=== PATIENT | female | born 1940 | race African-American/Black ===

== ENCOUNTER 2018-12-01 12:40 | Inpatient (IN) | payer OTHER, BC ==
--- NOTE | 2018-12-01 13:38 | RAD REPORT ---
EXAM DESCRIPTION: CT - Head C Spine Mpr Wo Con - 12/01/2018 1:15 pm CLINICAL HISTORY: Head and neck injury status post fall. Head and neck pain COMPARISON: None. TECHNIQUE: Computed axial tomography of the head and cervical spine was obtained. Sagittal and coronal reconstruction was performed. All CT scans are performed using dose optimization technique as appropriate and may include automated exposure control or mA/KV adjustment according to patient size. FINDINGS: Mild to moderate low-density areas within periventricular, deep and subcortical white michael er probably ischemic changes secondary to small vessel disease An intracranial bleed is not seen. The ventricles are normal in caliber. An extra-axial fluid collect ion is not noted.Fluid within the visualized sinuses and mastoids is not seen. Coarse vascular calcif ications are present A cervical fracture is not visualized. No dislocation is noted. 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 A cervical fracture is not visualized. If the patient continues to have symptoms to suggest intracra nial /spinal cord pathology then MRI would be recommended 7 centimeter left thyroid mass extending substernally shifting the trachea towards the right. Further evaluation with nonemergent ultrasound recommended
[2018-12-01 13:57] LABS: Absolute Lymphocytes (CBC) 0.8 K/uL (0.7-4.9); Basophils % 0.6 % (0-1.3); Hematocrit 36.3 % (36.0-45.0); MPV 8.4 fL (7.6-11.3); RBC Red Blood Cell Count 3.98 M/uL (3.86-4.86)
[2018-12-01 14:00] LABS: Protime INR 1.16
--- NOTE | 2018-12-01 14:08 | RAD REPORT ---
EXAM DESCRIPTION: RAD - Pelvis - 12/01/2018 1:15 pm CLINICAL HISTORY: Pelvic pain status post injury FINDINGS: Comminuted intertrochanteric fracture involves the proximal right femur extending to the l janine and greater trochanters. Extreme varus angulation present at the fracture site No dislocation Osteoporosis
--- NOTE | 2018-12-01 14:08 | RAD REPORT ---
EXAM DESCRIPTION: RAD - Hip Right 2 View - 12/01/2018 1:14 pm CLINICAL HISTORY: Right hip pain FINDINGS: Comminuted intertrochanteric fracture involves the proximal right femur extending to the l janine and greater trochanters. Extreme varus angulation present at the fracture site No dislocation Osteoporosis
--- NOTE | 2018-12-01 14:09 | RAD REPORT ---
EXAM DESCRIPTION: Audi Single View12/01/2018 1:15 pm CLINICAL HISTORY: Chest pain COMPARISON: none FINDINGS: The lungs appear clear of acute infiltrate. The heart is mildly enlarged IMPRESSION: No acute abnormalities displayed
--- NOTE | 2018-12-01 14:25 | ER ---
Nurse's Notes [facility] Name: Deborah Brooks Age: 78 yrs Sex: Female : 1940 Arrival Date: 12/01/2018 Time: 12:41 Bed 25 Private MD: Diagnosis: Displaced intertrochanteric fracture of right femur Presentation: 12/01 12:35 Trauma event details: Injury occurred in the [facility], Injury occurred: [facility] alf Injury occurred: December 01, 2018. 12:49 Presenting complaint: EMS states: patient had an unwitnessed fall this morning. she was mg2 found on the floor, sustained injury to her right hip, shortening of the right leg, pain in the right shoulder, xray was done in [facility] and she has fracture in the right hip. BGL 162 mg/dl. AO x1. Transition of care: patient was received from another setting of care (long-term care facility), [facility]. Onset of symptoms was December 01, 2018. Risk Assessment: Do you want to hurt yourself or someone else? Patient reports no desire to harm self or others. Initial Sepsis Screen: Does the patient meet any 2 criteria? No. Patient's initial sepsis screen is negative. Does the patient have a suspected source of infection? No. Patient's initial sepsis screen is negative. Care prior to arrival: Medication(s) given: fentanyl 50 mcg IV IV initiated. 20 GA, in the left antecubital area, Glucose check: 162 hip brace. 12:49 Method Of Arrival: EMS: [place] [id number] 12:49 Acuity: [place] 3 [facility] 14:21 Mechanism of Injury: Fall from standing position. [facility] Trauma Activation: Alert Physician: ED Physician; Name: dr collier; Notified At: ; Arrived At: Physician: General Surgeon; Name: ; Notified At: ; Arrived At: Physician: Radiology; Name: randal; Notified At: ; Arrived At: Physician: Respiratory; Name: ; Notified At: ; Arrived At: Physician: Lab; Name: ; Notified At: ; Arrived At: Historical: - Allergies: 14:29 No Known Allergies; mg2 - Home Meds: 14:29 citalopram 10 mg tab once daily [Active]; labetolol [Active]; losartan 50 mg oral tab 1 mg2 tab once daily [Active]; Melatonin Oral [Active]; namenda [Active]; Norvasc 2.5 mg Oral tab [Active]; - PMHx: 14:29 left breast neoplasm; DM 2; Hypertension; insomnia; dysphagia; communication deficit; mg2 Dementia; - PSHx: 14:29 left breast mastectomy; mg2 - Immunization history:: Flu vaccine status is unknown. - Immunization history: Last tetanus immunization: unknown. - Family history:: not pertinent. - Social history:: Smoking status: unknown. - Ebola Screening: : No symptoms or risks identified at this time. - Hospitalizations: : No recent hospitalization is reported. Screenin:15 Abuse screen: Denies threats or abuse. Denies injuries from another. Nutritional mg2 screening: No deficits noted. Tuberculosis screening: No symptoms or risk factors identified. 14:30 Fall Risk Fall in past 12 months (25 points). Mental Status- Overestimates/Forgets mg2 Limitations (15 pts.). Primary Survey: 14:14 NO uncontrolled hemorrhage observed. A: The patient is alert. Breathing/Chest: mg2 Respiratory pattern: regular, Respiratory effort: spontaneous, unlabored. Circulation: Skin color: pink. Disability Alert. Exposure/Environment: All clothing and personal items were removed. Forensic evidence collection is not deemed to be indicated at this time. Items placed in patient belonging bag. There is no evidence of uncontrolled external bleeding. A warming method has been applied: A warm blanket has been provided to the patient. 15:30 Reassessment Airway Airway Patent Breathing/Chest Respiratory pattern Regular mg2 Respiratory effort Spontaneous Unlabored Breath sounds Clear Chest inspection Symmetrical Circulation Color Vesper Disability Alert. Secondary Survey: 14:15 HEENT: No deficits noted. Gastrointestinal: No deficits noted. : No deficits noted. mg2 Musculoskeletal: shortening of right leg. Assessment: 14:10 General: Appears in no apparent distress. comfortable, Behavior is calm, cooperative. mg2 Pain: Unable to use pain scale. Patient appears quiet. Neuro: Level of Consciousness is awake, alert, obeys commands, Oriented to person, place, time, situation. EENT: No signs and/or symptoms were reported regarding the EENT system. Cardiovascular: Capillary refill < 3 seconds Patient's skin is warm and dry. Respiratory: Airway is patent Respiratory effort is even, unlabored, Respiratory pattern is regular, symmetrical. GI: No signs and/or symptoms were reported involving the gastrointestinal system. : No signs and/or symptoms were reported regarding the genitourinary system. Derm: Skin is intact, is healthy with good turgor, Skin is pink, warm \T\ dry. normal. Musculoskeletal: Capillary refill < 3 seconds, Swelling present in right hip. 14:52 Reassessment: patient informed about the plan for admission. she said ok. mg2 15:04 Injury Description: fracture in the right femur extending to the trochanter area. mg2 16:21 Reassessment: Patient appears in no apparent distress at this time. mg2 17:54 Reassessment: Reassessment: Patient appears in no apparent distress at this time. mg2 Vital Signs: 12:53 BP 159 / 90; Pulse 77; Resp 18; Temp 98.5; Pulse Ox 100% on R/A; mg2 14:35 BP 161 / 78; Pulse 70; Resp 18; Pulse Ox 97% on R/A; mg2 15:21 BP 133 / 67; Pulse 71; Resp 18; Pulse Ox 100% on R/A; mg2 [place] Coma Score: 14:19 Eye Response: spontaneous(4). Verbal Response: confused(4). Motor Response: localizes mg2 pain(5). Total: 13. Trauma Score (Adult): 14:19 Eye Response: spontaneous(1); Verbal Response: confused(1); Motor Response: localizes mg2 pain(1); Systolic BP: > 89 mm Hg(4); Respiratory Rate: 10 to 29 per min(4); [place] Score: 13; Trauma Score: 11 14:35 Eye Response: spontaneous(1); Verbal Response: confused(1); Motor Response: localizes mg2 pain(1); Systolic BP: > 89 mm Hg(4); Respiratory Rate: 10 to 29 per min(4); [place] Score: 13; Trauma Score: 11 ED Course: 12:41 Patient arrived in ED. rn 12:41 Manav Collier MD is Attending Physician. rn 12:42 Randal Delaney RN is Primary Nurse. mg2 12:53 Triage completed. mg2 12:54 Arm band placed on. mg2 13:15 CT Head C Spine In Process Unspecified. EDMS 13:15 XRAY Hip RIGHT 2 view In Process Unspecified. EDMS 13:15 XRAY Chest (1 view) In Process Unspecified. EDMS 13:15 XRAY Pelvis In Process Unspecified. EDMS 13:15 CT completed. Patient tolerated procedure well. Patient moved back from CT. mw3 13:16 X-ray completed. Portable x-ray completed in exam room. Patient tolerated procedure mh1 well. 14:[address] Massey and connected with Dr Collier. gm 14:16 Patient has correct armband on for positive identification. mg2 14:16 Inserted saline lock: 20 gauge in right. Patient maintains SpO2 saturation greater than mg2 95% on room air. 14:23 Gavin Foster MD is Hospitalizing Provider. rn 14:30 Thermoregulation: warm blanket given to patient. mg2 14:30 No provider procedures requiring assistance completed. mg2 17:55 Patient admitted, IV remains in place. mg2 Administered Medications: 14:40 Drug: Demerol 25 mg Route: IVP; Site: right forearm; mg2 17:04 Follow up: Response: No adverse reaction; Marked relief of symptoms mg2 14:40 Drug: NS 0.9% 1000 ml Route: IV; Rate: 100 ml/hr; Site: right forearm; mg2 17:04 Follow up: Response: No adverse reaction; IV Status: Infusion continued upon admission; mg2 IV Intake: 300ml Intake: 14:19 PO: 0ml; Total: 0ml. mg2 17:04 IV: 300ml; Total: 300ml. mg2 Outcome: 14:24 Decision to Hospitalize by Provider. rn 17:54 Admitted to Tele accompanied by corazon, via stretcher, room 412, with chart, Report mg2 called to CECILIA Hicks 17:54 Condition: stable 17:54 Instructed on the need for admit, Demonstrated understanding of instructions. 17:55 Patient's length of stay in the Emergency Department was greater than 2 hours. mg2 18:13 Patient left the ED. mg2 Signatures: Dispatcher [employer] EDMS Franci Ramirez mh1 Manav Collier MD MD rn Gardose, Michele, RN RN mg2 Willis, Michelle mw3 Amy Ruiz Corrections: (The following items were deleted from the chart) 18:13 17:54 Reassessment: mg2 mg2 18:13 17:54 Reassessment: Patient appears in no apparent distress at this time. Patient is mg2 alert, oriented x 3, equal unlabored respirations, skin warm/dry/pink. Reassessment: Patient appears in no apparent distress at this time. Patient is alert, oriented x 3, equal unlabored respirations, skin warm/dry/pink. mg2
--- NOTE | 2018-12-01 14:25 | EDPHYS ---
Physician Documentation [facility] Name: Deborah Brooks Age: 78 yrs Sex: Female : 1940 Arrival Date: 12/01/2018 Time: 12:41 Bed 25 Private MD: ED Physician Manav Collier HPI: 12/01 12:52 This 78 yrs old Black Female presents to ER via Unassigned with complaints of fall, hip rn injury. 12:52 The patient or guardian reports decreased range of motion, deformity, an injury, pain. rn The complaints affect the right hip. Onset: The symptoms/episode began/occurred this morning. Modifying factors: The symptoms are alleviated by remaining still, the symptoms are aggravated by any movement. Severity of symptoms: At their worst the symptoms were moderate, in the emergency department the symptoms are unchanged. It is unknown whether or not the patient has had similar symptoms in the past. Per EMS, fall this AM, unwitnessed, xrays obtained at retirement, shows right hip fracture, and neg shoulder xray. Per report, at baseline mentally, no other gross signs of trauma. + dementia. No blood thinners. . Historical: - Allergies: 14:29 No Known Allergies; mg2 - Home Meds: 14:29 citalopram 10 mg tab once daily [Active]; labetolol [Active]; losartan 50 mg oral tab 1 mg2 tab once daily [Active]; Melatonin Oral [Active]; namenda [Active]; Norvasc 2.5 mg Oral tab [Active]; - PMHx: 14:29 left breast neoplasm; DM 2; Hypertension; insomnia; dysphagia; communication deficit; mg2 Dementia; - PSHx: 14:29 left breast mastectomy; mg2 - Immunization history:: Flu vaccine status is unknown. - Immunization history: Last tetanus immunization: unknown. - Family history:: not pertinent. - Social history:: Smoking status: unknown. - Ebola Screening: : No symptoms or risks identified at this time. - Hospitalizations: : No recent hospitalization is reported. ROS: 12:52 Unable to obtain ROS due to baseline dementia. rn Exam: 12:52 Constitutional: This is a well developed, well nourished patient who is awake, doesn't rn follow commands Head/Face: Normocephalic, atraumatic. ENT: No oral trauma Neck: No midline tenderness or swelling Chest/axilla: Normal chest wall appearance and motion. Nontender with no deformity. No lesions are appreciated. Cardiovascular: Regular rate and rhythm. No pulse deficits. Respiratory: No increased work of breathing, no retractions or nasal flaring. Abdomen/GI: soft, non-tender Back: No spinal tenderness MS/ Extremity: Pulses equal, no cyanosis. + RLE shortened and internally rotated, distal pulses intact and equal. grimaces in pain with ROM right shoulder. Neuro: Awake, doesn't follow commands. Vital Signs: 12:53 BP 159 / 90; Pulse 77; Resp 18; Temp 98.5; Pulse Ox 100% on R/A; mg2 14:35 BP 161 / 78; Pulse 70; Resp 18; Pulse Ox 97% on R/A; mg2 15:21 BP 133 / 67; Pulse 71; Resp 18; Pulse Ox 100% on R/A; mg2 [place] Coma Score: 14:19 Eye Response: spontaneous(4). Verbal Response: confused(4). Motor Response: localizes mg2 pain(5). Total: 13. Trauma Score (Adult): 14:19 Eye Response: spontaneous(1); Verbal Response: confused(1); Motor Response: localizes mg2 pain(1); Systolic BP: > 89 mm Hg(4); Respiratory Rate: 10 to 29 per min(4); [place] Score: 13; Trauma Score: 11 14:35 Eye Response: spontaneous(1); Verbal Response: confused(1); Motor Response: localizes mg2 pain(1); Systolic BP: > 89 mm Hg(4); Respiratory Rate: 10 to 29 per min(4); [place] Score: 13; Trauma Score: 11 MDM: 12:41 Patient medically screened. rn 14:22 Differential diagnosis: hip fracture, intertrochanteric fracture, femoral neck rn fracture, femoral shaft fracture, strain. Data reviewed: vital signs, nurses notes, lab test result(s), EKG, radiologic studies, CT scan, plain films, and as a result, I will admit patient. Counseling: I had a detailed discussion with the patient and/or guardian regarding: the historical points, exam findings, and any diagnostic results supporting the discharge/admit diagnosis, lab results, radiology results, the need for further work-up and treatment in the hospital. Admission orders: after a detailed discussion of the patient's condition and case, the admit orders are written by me. ED course: Consulted with Dr. Massey, will admit to hospitalist for right intertrochanteric femur fracture. . 14:24 ED course: Pt received fentanyl by EMS. rn 12/01 12:42 Order name: CBC with Diff; Complete Time: 14:27 rn 12/01 12:42 Order name: Basic Metabolic Panel rn 12/01 12:42 Order name: Protime (+inr); Complete Time: 14:11 rn 12/01 12:42 Order name: Ptt, Activated; Complete Time: 14:11 rn 12/01 12:42 Order name: CT Head C Spine; Complete Time: 13:48 rn 12/01 14:01 Order name: Manual Differential; Complete Time: 14:27 EDMS 12/01 12:42 Order name: IV Start; Complete Time: 14:34 rn 12/01 12:42 Order name: XRAY Hip RIGHT 2 view; Complete Time: 14:11 rn 12/01 12:42 Order name: EKG; Complete Time: 12:44 rn 12/01 12:42 Order name: EKG - Nurse/Tech; Complete Time: 14:33 rn 12/01 12:56 Order name: XRAY Chest (1 view); Complete Time: 14:11 rn 12/01 12:56 Order name: XRAY Pelvis; Complete Time: 14:11 rn Administered Medications: 14:40 Drug: Demerol 25 mg Route: IVP; Site: right forearm; mg2 17:04 Follow up: Response: No adverse reaction; Marked relief of symptoms mg2 14:40 Drug: NS 0.9% 1000 ml Route: IV; Rate: 100 ml/hr; Site: right forearm; mg2 17:04 Follow up: Response: No adverse reaction; IV Status: Infusion continued upon admission; mg2 IV Intake: 300ml Disposition: 12/01/18 14:24 Hospitalization ordered by Gavin Foster for Inpatient Admission. Preliminary diagnosis is Displaced intertrochanteric fracture of right femur. - Bed requested for Telemetry/MedSurg (Inpatient). - Status is Inpatient Admission. mg2 - Condition is Stable. - Problem is new. - Symptoms have improved. UTI on Admission? No Signatures: Dispatcher [employer] EDMS Manav Collier MD MD rn Gardose, Michele, RN RN mg2 Moya, Gabriella Corrections: (The following items were deleted from the chart) 12:57 12:52 Constitutional: This is a well developed, well nourished patient who is awake, rn doesn't follow commands Head/Face: Normocephalic, atraumatic. ENT: No oral trauma Neck: No midline tenderness or swelling Chest/axilla: Normal chest wall appearance and motion. Nontender with no deformity. No lesions are appreciated. rn 16:59 14:24 Hospitalization Ordered by Gavin Foster MD for Inpatient Admission. Preliminary gm diagnosis is Displaced intertrochanteric fracture of right femur. Bed requested for Telemetry/MedSurg (Inpatient). Status is Inpatient Admission. Condition is Stable. Problem is new. Symptoms have improved. UTI on Admission? No. rn 18:13 16:59 12/01/2018 14:24 Hospitalization Ordered by Gavin Foster MD for Inpatient mg2 Admission. Preliminary diagnosis is Displaced intertrochanteric fracture of right femur. Bed requested for Telemetry/MedSurg (Inpatient). Status is Inpatient Admission. Condition is Stable. Problem is new. Symptoms have improved. UTI on Admission? No. gm
[2018-12-01 14:26] LABS: Blood Morphology Comment NOTED (NOT SEEN); Burr Cells 2+; Ovalocytes 2+; Platelet Estimate ADEQ
[2018-12-01] MEDS ORDERED: MEPERIDINE HCL 25 MG/0.5 ML ONE (14:36)
[2018-12-01] MEDS ORDERED: NA CHLORIDE 0.9% 1,000 ML ONE (14:36)
[2018-12-01] MEDS ORDERED: GLUCAGON 1 MG/VIAL IM PRN (17:38)
[2018-12-01] MEDS ORDERED: ACETAMINOPHEN 500 MG TAB PO PRN (17:38)
[2018-12-01] MEDS ORDERED: ONDANSETRON 4 MG/2 ML VIAL IV PRN (17:38)
[2018-12-01] MEDS ORDERED: D50W 25 GM/50 ML SYRINGE IV PRN (17:38)
[2018-12-01 18:35] LABS: Thyroid Stimulating Hormone 0.028 uIU/mL (0.360-3.740)
--- NOTE | 2018-12-01 19:41 | P.CNS ---
Date of Consult: 12/01/18 Reason for Consult: FX RIGHT HIP Requesting Physician: Gavin Foster Chief Complaint: COMMUNICATION LIMITED BY DEMENTIA History of Present Illness: PATIENT FELL AT [facility] AND HAD SEVERE PAIN WITH MOVEMENT RIGHT HIP. BROUGHT TO ED VIA EMS X-RAYS SHOW A COMMINUTED RIGHT HIP FRACTURE. SHOULDER FILMS TAKEN AT [facility] WERE NEGATIVE. Allergies No Known Allergies Allergy (Unverified 12/01/18 17:37) Home medications list reviewed: Yes - Past Medical/Surgical History Diabetic: Yes -: LEFT BREAST NEOPLASM -: AODM2 -: HTN -: INSOMNIA -: DYSPHAGIA -: DEMENTIA -: LEFT BREAST SURGERY - Social History Smoking Status: Unknown if ever smoked Place of Residence: [place]-Term Review of Systems is unable to be obtained Physical Examination Temp Pulse Resp BP Pulse Ox 98.5 F 71 18 133/67 12/01/18 12:53 12/01/18 15:21 12/01/18 15:21 12/01/18 15:21 General: Demented, Confused HEENT: Atraumatic, Normocephalic Neck: Supple Respiratory: Normal air movement Cardiovascular: Normal pulses Capillary refill: <2 Seconds Gastrointestinal: Soft and benign, Non-distended Musculoskeletal: Other (PATIENT SHOWS ANXIETY WITH MOVEMENT SLIPPING SOCK OFF RLE, NO OUTCRY. RLE SHORTENED AND EXTERNALLY ROTATED.) Integumentary: No rashes, No breakdown Neurological: Sensation intact Urinary: Parker catheter External genitalia: Deferred Rectal: Deferred Laboratory Data (last 24 hrs) 12/01/18 13:40: PT 13.6 H, INR 1.16, APTT 29.3 12/01/18 13:40: Sodium 139, Potassium 4.0, BUN 22 H, Creatinine 0.98, Glucose 165 H 12/01/18 13:40: WBC 11.2 H, Hgb 12.4, Hct 36.3, Plt Count 274 Imagings Data: PELVIS FILM SHOWS COMMINUTED IT FRACTURE RIGHT HIP. HEAD AND NECK CT SCAN NEGATIVE FOR FRACTURES - Problems (1) Closed comminuted intertrochanteric fracture of right femur Current Visit: Yes Status: Acute Plan: DISCUSSED ISSUES WITH PATIENT'S SON. JUST RETURNED TODAY FROM [place]SE[place]. UNABLE TO BE HERE BEFORE NOON TOMORROW. WILL PLAN TO DO IM NAIL FIXATION ON MONDAY FOR CLOSED,COMMINUTED RIGHT INTERTROCHANTERIC FRACTURE. Qualifiers: Encounter type: initial encounter Qualified Code(s): S72.141A - Displaced intertrochanteric fracture of right femur, initial encounter for closed fracture
[2018-12-01] MEDS: INSULIN -REGULAR HUMAN 50 UNIT/0.5 ML ML SQ SCH (21:00)
[2018-12-01] MEDS: NA CHLORIDE 0.9% 1,000 ML IV SCH (21:09)
[2018-12-01] MEDS: MORPHINE 2 MG/ML SYR IV PRN (21:10)
[2018-12-01 22:46] VITALS: BMI 24.5
[2018-12-02] MEDS: MORPHINE 2 MG/ML SYR IV PRN ×4 (01:01→20:06)
--- NOTE | 2018-12-02 02:41 | HP ---
Date of Admission: 12/01/2018 Senior Javascript Engineer: Dr. Massey. Chief Complaint: Fall with right femur fracture. Code Status: Full. History Of Present Illness: Patient is a 78-year-old female with past medical history of diabetes, hypertension, dementia, history of breast cancer, status post mastectomy and reconstruction, glaucoma, depression, anxiety, who is a resident of nursing facility, who had a fall in her urine, slipped in her urine and fell on her right side. Imaging studies were done at the facility, which showed hip fracture. Shoulders imaging was negative. Patient was brought to the ER for further evaluation. Her symptoms are constant, moderate, progressively worsening. It should be noted that the history is taken from previous medical records, ER staff and no family was present at the bedside and residential notes as the patient is unable to provide history due to her medical condition. Patient's workup revealed right femur fracture. White count was mildly elevated. CT head and CT spine did not show any acute cervical fracture and, however, there was incidental finding of left thyroid mass. Dr. Massey with Orthopedics was consulted by the ER. Patient was then referred for admission. She did receive Demerol for pain and was given normal saline bolus. When seen in the ER, she was awake, alert, oriented to self only , largely nonverbal, appear to be in some mild distress. Past Medical History: Diabetes mellitus type 2, hypertension, dementia, history of breast cancer, status post left mastectomy with reconstruction, glaucoma, depression and anxiety. Allergies: NO KNOWN DRUG ALLERGIES. Medications: List reviewed. Family History: Unable to obtain due to patient's medical condition. No family present at the bedside. Social History: No history of tobacco or alcohol use currently. Patient is a resident of nursing facility. Review of Systems: Unable to obtain due to patient's medical condition. Physical Examination: Vital Signs: Blood pressure 159/98, respirations 18, O2 of 100% on room air, temperature 98.5, heart rate 77. General: Awake, alert, oriented to self only. Appears to be in some mild distress. Elderly female, ill appearing. HEENT: Normocephalic, atraumatic. PERRLA. EOMI. Moist mucous membranes. Oropharynx is clear. Conjunctiva is anicteric. Neck: Supple. No JVD. CV: S1, S2. Regular rate and rhythm. Peripheral pulses present. Respiratory: Moving air well bilaterally. No wheezing or stridor. No use of accessory muscles. Gastrointestinal: Abdomen is soft, nontender, nondistended. Positive bowel sounds. No guarding or rigidity. Extremities: No clubbing, cyanosis, or edema. No calf tenderness. Neuro: Unable to properly assess cranial nerves, however, no focal deficit is seen. Moves all 4 extremities. Speech is limited. Patient says few words only , but is comprehensible. No facial asymmetry. Musculoskeletal: Right lower extremity shortened, rotated. Laboratory Data: INR 1.16. WBC 11.2, H and H 12.4 and 36.3, platelets 274. Sodium 139, potassium 4, chloride 106, CO2 of 24, BUN 22, creatinine 0.98, glucose 165, calcium 9.6. Imaging Studies: CT scan of the cervical spine and head show white matter ischemic changes secondary to small vessel disease. No intracranial bleed. A 7 cm left thyroid mass extends substernally, shifting the trachea toward the right. Hip x-ray personally reviewed shows no dislocation, osteoporosis, comminuted intertrochanteric fracture of the proximal right femur extending to the lesser and greater trochanters. Extreme varus angulation present at the fracture site. Chest x-ray personally reviewed shows no acute abnormality. Pelvis x-ray shows committed intertrochanteric fracture of the proximal right femur extending to the lesser and greater trochanter. Assessment: A 78-year-old female with: 1. Comminuted intertrochanteric fracture of the proximal right femur extending to the lesser and greater trochanters close fracture initial encounter. Patient has extreme varus angulation. We will continue with pain control. Dr. Massey with Orthopedics has been consulted. We will keep n.p.o. after midnight in anticipation of surgery. 2. Essential hypertension, stable. 3. Diabetes mellitus type 2, non-insulin dependent. We will continue with sliding scale insulin and monitor Accu-Cheks. 4. Vascular dementia. 5. History of breast cancer, status post left mastectomy and reconstruction. 6. Glaucoma. 7. Depression and anxiety, stable. 8. Thyroid mass, 7 cm with mass-effect deviating trachea. We will obtain ultrasound of the thyroid. Plan: Admit patient to Med-Surg, place as inpatient. Length of stay greater than 2 midnights. /LUIS Voice ID: [id number] MTDD
[2018-12-02 05:41] LABS: Albumin 3.5 g/dL (3.4-5.0); Bilirubin Total 1.1 mg/dL (0.2-1.0); Potassium 3.9 mmol/L (3.5-5.1); Protein, Total 6.4 g/dL (6.4-8.2)
[2018-12-02 05:42] LABS: Absolute Lymphocytes (CBC) 1.3 K/uL (0.7-4.9); Basophils % 0.4 % (0-1.3); Hematocrit 30.8 % (36.0-45.0); Lymphocytes % 13.7 % (15.3-44.8); MPV 8.9 fL (7.6-11.3); RBC Red Blood Cell Count 3.43 M/uL (3.86-4.86)
[2018-12-02] MEDS ORDERED: KCL 20 MEQ/100 mL IVPB 20 MEQ/100 ML BAG IV SCH (06:00)
[2018-12-02] MEDS: NA CHLORIDE 0.9% 1,000 ML IV SCH ×3 (06:13→20:00)
[2018-12-02 06:15] LABS: Urine Appearance CLOUDY; Urine Blood 2+ (NEG); Urine Color YELLOW; Urine Glucose NEGATIVE (NEG); Urine Protein 1+ (NEG); Urine Specific Gravity 1.025 (1.005-1.030)
--- NOTE | 2018-12-02 06:16 | EKG ---
Test Date: 2018-12-01 Test Time: 12:55:26 Stone Banker: LASHAYT MEASUREMENT RESULTS: Intervals: Rate: 74 DC: 152 QRSD: 64 QT: 374 QTc: 415 [place]: P: 86 DC: 152 QRS: 52 T: 76 INTERPRETIVE STATEMENTS: Sinus rhythm with premature atrial complexes Nonspecific ST and T wave abnormality Abnormal ECG No previous ECG available for comparison Electronically Signed On 12-02-18 06:15:44 CDT by Alfredo Gonzalez
[2018-12-02 06:18] LABS: Urine Bilirubin NEG (NEG)
[2018-12-02 06:53] LABS: Urine Bacteria 20-50 /HPF (<20); Urine Culture Reflex Order REFLEXED
[2018-12-02 06:54] LABS: Urine Amorphous Sediment 1+ /HPF (NONE SEEN)
[2018-12-02] MEDS: INSULIN -REGULAR HUMAN 50 UNIT/0.5 ML ML SQ SCH ×4 (07:30→20:02)
--- NOTE | 2018-12-02 08:12 | RAD REPORT ---
EXAM DESCRIPTION: US - Thyroid Para Parotid Gland - 12/01/2018 9:23 pm CLINICAL HISTORY: thyroid mass 7cm, abnormal CT study COMPARISON: CT cervical spine December 01, 2018 TECHNIQUE: Sonographic evaluation of the thyroid gland and chains tissues performed. FINDINGS: Right thyroid lobe is 4.9 x 1.2 x 2.4 cm. Isthmus is 6 mm in thickness. Right lobe demonst rates a 7 x 5 mm heterogeneous hypoechoic solid nodule. Right thyroid tissue is otherwise homogeneous . No mass or lymphadenopathy in the right-side neck soft tissues. Left lobe is enlarged with tissue extending into the upper chest. The inferior margin extends beyond the range of thyroid ultrasound [id number]. Exam is further limited by patient's ability to ted ate due to altered mental status of the time of the study. In the midportion of the left thyroid lobe a 3.5 centimeter oval solid nodule is identified. In the i nferior left thyroid lobe there is a much larger heterogeneous solid nodule. Margins between the mass and surrounding tissues are poorly defined. Left lobe is grossly estimated at 6.5 x 4.1 x 3.8 cm. IMPRESSION: Large heterogeneous mass with poorly defined margins fills the lower portion of the left lobe thyroid gland extending into the upper chest. Margins are difficult to define and the inferior margin extends into the upper chest, beyond the field of view of thyroid ultrasound. Left lobe additionally contains a 3.5 centimeter discrete oval solid nodule. Normal sized right thyroid lobe contains a 7 x 5 mm solid nodule but is otherwise unremarkable. The left lobe large solid mass is not fully assessed by sonography nor fully evaluated on this noncon trast CT cervical spine examination. It is uncertain the large left lobe mass is simply a large nodul e or a more aggressive mass. Contrast-enhanced CT imaging of the neck and upper chest may be helpful. MRI imaging would be helpful if and when the patient medical status allows this examination.
--- NOTE | 2018-12-02 08:59 | P.PN ---
Date of Service: 12/02/18 (Hosp day 2) S: PATIENT RESTING COFORTABLY, SHIFT SUMMARY INDICATES SHE SLEPT WELL AND SHOWED NO SIGNS OF DISTRESS. PATIENT WILL FOLOW DIRECTIONS TO WIGGLE TOES AND NODDED SLIGHTLY WHEN I MENTIONED HER SONS MAY COME TODAY. WITH FURTHER ATTEMPT TO GET NODS OR SHAKES REGARDING SURGERY OPTIONS SHE CLOSED HER EYES AND GAVE NO FURTHER INDICATION OF AWARENESS. O: AFEBRILE, VSS, HGB 11.0 DOWN FROM 12.4; PAIN CHART 5,5,2,2,210. EXAM LIMITED TO MOVEMENT OF FOOT, NO ATTEMPT TO MOVE RLE. A: POSTPONED SURGERY SO SON WITH POWER OF TOOLING ENGINEERING TECH CAN EVALUATE SITUATION AND MAKE HIS DECISION. WITH PATIENT'S RELUCTANCE TO MOVE AT ALL SHE COULD BE MANAGED WITH AIR MATTRESS AND PAIN CONTROL. USUALLY DO SURGERY FOR MOBILIZATION FOR NURSING CARE AND COMPASSION REGARDING LEVEL OF PAIN WITH NECESSARY CARE. P: SONS HAVE PLANNED TO ARRIVE THIS AFTERNOON. WILL OFFER SURGERY TO BE SCHEDULED FOR AROUND NOON TOMORROW (MON.) TO CONSIST OF IM NAIL FIXATION OF RIGHT HIP IT FX REQUIRING THREE INCISIONS OF 3,2,&1cm.
[2018-12-02] MEDS ORDERED: HALOPERIDOL LACT 5 MG/ML INJ IV ONE (14:30)
[2018-12-02] MEDS ORDERED: DIPHENHYDRAMINE 50 MG/ML VIAL IV ONE (14:30)
--- NOTE | 2018-12-02 16:47 | PN ---
Date of Progress Note: 12/02/2018 Subjective: Patient is seen and examined. Chart reviewed and case discussed with RN and Dr. Massey. Patient likely going for procedure in a.m. Patient did have some agitation, requiring Haldol. Medication List: Reviewed. Physical Examination: Vital Signs: Temperature 99.1, heart rate 76, blood pressure 133/71, respirations 20, O2 of 90% on room air. General: Awake, alert, oriented x1. No acute distress. Minimal pain. CV: S1, S2. Regular rate and rhythm. Respiratory: Moving air well bilaterally. No wheezing or stridor. Gastrointestinal: Abdomen is soft, nontender, nondistended. Positive bowel sounds. Extremities: No clubbing, cyanosis, edema. Musculoskeletal: Right lower extremity shortened, rotated. Neurologic: Nonfocal. Laboratory Data: Sodium 138, potassium 3.9, chloride 107, CO2 of 24, BUN 20, creatinine 0.89, glucose 140, calcium 9.1. WBC 9.8, H and H 11 and 30.8, platelets 248, neutrophils 77%. Urine culture pending. UA; nitrite negative, leukocyte esterase 1+, 20 to 50 wbc's, 10 to 20 rbc's. Assessment And Plan: 1. Comminuted intertrochanteric fracture of the proximal right femur extending to the lesser and greater trochanters, closed fracture, initial encounter. Patient has extreme varus angulation. Plan is for surgery in a.m. Keep n.p.o. after midnight. Continue with pain control, Lovenox tonight. 2. Essential hypertension, stable. 3. Acute cystitis with hematuria. We will start on Rocephin. Monitor urine culture. 4. Diabetes mellitus type 2, non-insulin requiring with hyperglycemia. We will continue with sliding scale insulin and monitor Accu-Cheks. 5. Vascular dementia. 6. History of breast cancer, status post left mastectomy and reconstruction. 7. Glaucoma. 8. Depression and anxiety, stable. 9. Thyroid mass. Thyroid ultrasound has been ordered. The thyroid ultrasound was unable to completely image this mass. It is a large heterogeneous mass with poorly defined margins, having of lower portion of the left lobe thyroid gland extending in the upper chest margins difficult to define and the inferior margin extends into the upper chest beyond the file of view of thyroid ultrasound. Left lobe additionally contains a 3.5 cm discrete, oval, solid nodule, right thyroid lobe contains 7 x 5 solid nodule, but is otherwise unremarkable. Left lobe large solid mass is not fully assessed and may be simply large nodule or more aggressive mass. Contrast-enhanced CT imaging of the neck and upper chest may be helpful. Plan: For surgery, we will obtain CT of the chest to further elucidate this mass in order to prevent any preclusions to surgery in a.m. WILLEM Voice ID: [id number] Report ID: [id number] MTDD
[2018-12-02] MEDS: CEFTRIAXONE/SWI 1gm 1 GM/10 ML SYR IV SCH (16:56)
[2018-12-02] MEDS ORDERED: ENOXAPARIN 40 MG/0.4 ML SQ SCH (17:00)
[2018-12-02] MEDS ORDERED: CEFAZOLIN/SWI 1gm 1 GM/10 ML SYR IV SCH (17:30)
[2018-12-02] MEDS: LABETALOL HCL 100 MG TAB PO SCH (18:38)
[2018-12-02] MEDS: ENSURE HIGH PROTEIN 237 ML CAN PO SCH (20:02)
[2018-12-02] MEDS: BRIMONIDINE EACH EYE SCH (20:02)
[2018-12-02] MEDS: DORZOLAMIDE EACH EYE SCH (20:02)
[2018-12-02] MEDS ORDERED: MELATONIN 3 MG TABLET PO SCH (21:00)
[2018-12-02] MEDS ORDERED: MEMANTINE HCL 10 MG TABLET PO SCH (21:00)
[2018-12-02 22:48] VITALS: O2SAT 100
[2018-12-03] MEDS: MORPHINE 2 MG/ML SYR IV PRN ×3 (04:23→18:15)
[2018-12-03 04:31] LABS: Absolute Lymphocytes (CBC) 1.5 K/uL (0.7-4.9); Basophils % 0.9 % (0-1.3); Hematocrit 30.1 % (36.0-45.0); Lymphocytes % 15.6 % (15.3-44.8); RBC Red Blood Cell Count 3.29 M/uL (3.86-4.86)
[2018-12-03 04:36] LABS: Bilirubin Total 0.6 mg/dL (0.2-1.0); Potassium 3.9 mmol/L (3.5-5.1); Protein, Total 6.1 g/dL (6.4-8.2)
[2018-12-03] MEDS: LABETALOL HCL 100 MG TAB PO SCH ×2 (05:22→17:08)
[2018-12-03] MEDS ORDERED: KCL 20 MEQ/100 mL IVPB 20 MEQ/100 ML BAG IV SCH (06:00)
[2018-12-03] MEDS: INSULIN -REGULAR HUMAN 50 UNIT/0.5 ML ML SQ SCH ×3 (07:30→16:21)
[2018-12-03] MEDS: CEFTRIAXONE/SWI 1gm 1 GM/10 ML SYR IV SCH (08:34)
--- NOTE | 2018-12-03 08:37 | RAD REPORT ---
EXAM DESCRIPTION: CT - Soft Tissue Neck W/Contr - 12/02/2018 6:38 pm CLINICAL HISTORY: Thyroid mass, neck and chest mass, abnormal ultrasound and CT studies COMPARISON: Thyroid ultrasound December 01, 2018, CT head and cervical December 01, 2018 TECHNIQUE: During dynamic enhancement using 100 milliliters nonionic IV contrast, axial 5 millimeter thick images of the neck were obtained. All CT scans are performed using dose optimization technique as appropriate and may include automated exposure control or mA/KV adjustment according to patient size. FINDINGS: Intracranial portion of the examination is unremarkable. No globe or orbital content abnor mality. Mastoid air cells and paranasal sinuses are clear of acute disease. Arterial tree calcificati ons are present. No pharyngeal mucosal mass. Parapharyngeal fat is normal. No tonsillar or tongue base abnormality see n. Epiglottis is normal. Parotid and submandibular gland tissues show no acute findings. No laryngeal origin mass identified. Right thyroid lobe is normal in size with no gross abnormality. Thyroid gland is further detailed on ultrasound report. A very large left thyroid mass is present. This measures approximately 10 cm CC by 5 cm TR x 8 cm AP. This is the correlate to the prior CT and ultrasound studies. On contrast CT imaging the mass is het erogeneous. Scattered calcifications are present. On sonography a 3 centimeter sized discrete mass wa s present with a mid more dominant lower left thyroid mass. The inferior margin extends into the ante rior mediastinum 6-7 cm. Mass effect displaces the larynx and trachea to the right. There is left lat eral displacement of vasculature. Imaging characteristics are more pronounced than typically seen for goiter or benign nodule. Thyroid malignancy would be the primary consideration. No abnormal lymphadenopathy identified. No other mass or suspicious finding. Vascular calcifications are present. Patient does appear to have significant stenosis at the origin of the left internal carotid artery. Distal vertebral arteries owusu ve dense calcification as well. IMPRESSION: A 10 x 5 x 8 centimeter heterogeneous partially calcified left thyroid mass is present e xtending well into the anterior mediastinum. Imaging characteristics are more aggressive than typically seen for a simple goiter or enlarged thyro id nodule. A thyroid malignancy would be the primary consideration. No abnormal lymphadenopathy seen. Dense arterial tree calcifications. There is evidence for significant stenosis at the origin of the l eft internal carotid artery in the patient has mild to moderate narrowing of the distal vertebral art eries.
[2018-12-03] MEDS: ENSURE HIGH PROTEIN 237 ML CAN PO SCH (08:39)
[2018-12-03] MEDS: DORZOLAMIDE EACH EYE SCH (08:39)
[2018-12-03] MEDS: BRIMONIDINE EACH EYE SCH (08:39)
--- NOTE | 2018-12-03 08:40 | RAD REPORT ---
EXAM DESCRIPTION: CT - Thorax W/ Con - 12/02/2018 6:38 pm CLINICAL HISTORY: Thyroid mass, abnormal ultrasound and CT studies COMPARISON: Thyroid ultrasound December 01, CT cervical spine imaging December 01 TECHNIQUE: Dynamically enhanced 5 mm thick images of the chest were obtained during administration o f 100 mL non-ionic IV contrast. All CT scans are performed using dose optimization technique as appropriate and may include automated exposure control or mA/KV adjustment according to patient size. FINDINGS: A large heterogeneous partially calcified left thyroid mass is present. Findings are detai led on the separate CT neck report. No acute infiltrate in the lung parenchyma. No primary lung mass seen. No abnormal pulmonary nodules identified to suspect pulmonary metastatic disease. No lymphadenopathy seen at the neck base or in either axilla. Other than the anterior mediastinal ext ension of the thyroid mass, the mediastinum shows no abnormal lymphadenopathy. No hilar lymphadenopat hy. No chest wall mass. No pleural thickening or pleural effusion. No pneumothorax. No pericardial thickening or effusion. No acute aorta or pulmonary artery finding. IMPRESSION: Patient has a very large heterogeneous left-side fibroid mass extending well into the an terior mediastinum. This mass is detailed on the separate CT neck examination. No other mediastinal mass or lymphadenopathy. No pulmonary metastatic disease, primary mass lesion or acute lung parenchymal process.
[2018-12-03] MEDS ORDERED: MEGESTROL 400 MG/10 ML UCUP PO SCH (09:00)
[2018-12-03] MEDS ORDERED: CITALOPRAM 10 MG TABLET PO SCH (09:00)
[2018-12-03] MEDS ORDERED: AMLODIPINE 2.5 MG TAB PO SCH (09:00)
[2018-12-03] MEDS: NA CHLORIDE 0.9% 1,000 ML IV SCH (09:38)
[2018-12-03] MEDS ORDERED: HYDRALAZINE HCL 20 MG/ML VIAL IV PRN (09:47)
[2018-12-03] MEDS ORDERED: TRANEXAMIC ACID 1,000 MG in NA CHLORIDE 0.9% 50 ML IV ONE (12:00)
--- NOTE | 2018-12-03 14:13 | P.PN ---
Date of Service: 12/03/18 S: PATIENT BEING SEEN ON ROUNDS AFTER CANCELLATION OF SURGERY FOR RIGHT IT HIP FRACTURE, SHIFT. PATIENT MORE ALERT AND TALKING TODAY, NO FAMILY IN ROOM. MENTIONED CASE CANCELLED BECAUSE OF MASS IN THROAT AND CHEST AND SHE ASKED," WHAT COULD IT BE. THYROID MASS DESCRIBED POSSIBLE GOITER OR MALIGNANCY. O: AFEBRILE, B/P 188/81,P 74,T 99*; HGB 10.4 DOWN FROM 11.0; PAIN CHART 5,2,4,0 ,0,3/10. EXAM LIMITED TO MOVEMENT OF FOOT, NO ATTEMPT TO MOVE RLE. A: PLANNED SURGERY TO FOLLOW 11 AM CASE ~ 2 PM AND NOTIFIED ANESTHESIA ABOUT PENDING READ ON THYROID MASS CT SCAN OF CHEST. DR. PENA DISCUSSED HIS CONCERNS WITH DR. AYOUB AND TRANSFER TO HIGHER LEVEL OF CARE HAS BEEN INITIATED. P: EXPECT TRANSFER TO PROCEED THIS EVENING OR IN AM.
[2018-12-03] MEDS ORDERED: ENOXAPARIN 40 MG/0.4 ML SQ SCH (17:00)
[2018-12-03 17:11] VITALS: BP 159/76
[2018-12-03 17:16] VITALS: TEMP 98.7
--- NOTE | 2018-12-04 14:19 | DS ---
Date of Discharge: 12/03/2018 Consultants: Dr. Massey with Orthopedics. Procedures: None. Admitting Diagnoses: 1. Committed intertrochanteric fracture of the proximal right femur extending to the lesser and greater trochanters, closed fracture, initial encounter with extreme varus angulation. 2. Essential hypertension, stable. 3. Diabetes mellitus type 2, insulin requiring with hyperglycemia. 4. Vascular dementia. 5. History of breast cancer, status post left mastectomy and reconstruction. 6. Glaucoma. 7. Major depressive disorder. 8. Generalized anxiety disorder. 9. Thyroid mass with mass effect deviating trachea. Discharge Diagnoses: 1. Community intertrochanteric fracture of the proximal right femur extending to the lesser and greater trocanters, closed fracture, initial encounter, displaced. 2. Acute cystitis with hematuria, on Rocephin. 3. Thyroid mass goiter extending into the chest cavity with displacement and mass effect of the trachea. 4. Essential hypertension, not well controlled. 5. Diabetes mellitus type 2, insulin requiring with hyperglycemia. 6. Vascular dementia. 7. Delirium, acute. 8. History of breast cancer, status post left mastectomy and reconstruction. 9. Glaucoma. 10. Major depressive disorder, stable. 11. Generalized anxiety disorder, stable. Hospital Course: The patient was admitted from the nursing facility due to a mechanical fall leading to hip fracture. Patient was seen by Dr. Msasey who recommended ORIF. Son consented to the surgery, however, on head CT cervical spine done for trauma, which ruled out any acute fractures did show incidental finding of a 7 cm thyroid mass on the left, which turned out to be goiter after further investigation as CT scan of the chest showed a very large heterogeneous left-sided fibroid mass extending well into the anterior mediastinum. There was no pulmonary metastatic disease, primary mass lesion or acute lung parenchymal process. CT scan of the neck confirmed the 10 x 5 x 8 cm heterogeneous partially calcified left thyroid mass extending into the mediastinum, possible goiter versus enlarged thyroid nodule or possible malignancy were in the differential. No abnormal lymphadenopathy was seen. There was also evidence for significant stenosis at the origin of the left internal carotid artery and has mild to moderate narrowing of the distal vertebral arteries. Patient was initially attempted for surgery; however, Anesthesia recommended higher level of care due to the neck mass. It was felt that she would need postoperative ventilation and due to Pulmonology not being available, patient will need a tertiary care center as well as to have possible CT surgery backup. Patient was then transferred to [facility] for higher level of care, was accepted by hospitalist and was transferred in a stable condition for higher level of care. Physical Examination: General: Awake, alert, oriented x1, not in any acute distress. CV: S1, S2. Respiratory: Moving air well bilaterally. Abdomen: Soft, nontender, nondistended. Positive bowel sounds. Extremities: No clubbing, cyanosis, or edema. Neurologic: Nonfocal. Musculoskeletal: Right leg rotated and shortened. total time spent transferring patient was 49 minutes /LUIS Voice ID: [id number] Report ID: [id number] FELICIA
== END 2018-12-03 19:04 | disposition short-term general hospital (02) | DRG 536 ==
LOC: ER 12:40 → ERHOLD 15:16 → 4TH 17:55
PROVIDERS: ADMIT Family Medicine; ATTEND Family Medicine
DX: S72.141A Displaced intertrochanteric fracture of right femur, initial encounter for closed fracture (principal); N30.01 Acute cystitis with hematuria; E04.9 Nontoxic goiter, unspecified; W01.0XXA Fall on same level from slipping, tripping and stumbling without subsequent striking against object, initial encounter; Y92.099 Unspecified place in other non-institutional residence as the place of occurrence of the external cause; F41.8 Other specified anxiety disorders; I10 Essential (primary) hypertension; F01.50 Vascular dementia, unspecified severity, without behavioral disturbance, psychotic disturbance, mood disturbance, and anxiety; H40.9 Unspecified glaucoma; R45.1 Restlessness and agitation; E11.65 Type 2 diabetes mellitus with hyperglycemia; R41.0 Disorientation, unspecified; Z85.3 Personal history of malignant neoplasm of breast
CPT/HCPCS: 36415; 70450; 70491; 71045; 71260; 72125; 72170; 76536; 80048; 80053; 81001; 82962; 84443; 85025; 85610; 85730; 87086; 87088; 93005; 94760; 96361; 96374; 99285; J0360; J0696; J1200; J1630; J1650; J2175; J2270; J7030; Q9967